=== PATIENT | female | born 1940 | race Caucasian/White ===

== ENCOUNTER 2017-04-11 23:55 | Inpatient (IN) | payer MEDICARE ==
[~2017-04-11] VITALS: Ht 167.6 cm; Wt 78.5 kg
[~2017-04-11 23:55] MED LIST: ADVAIR 250/5028 PUFF IN; ALBUTEROL-200 PUFFS/ IH; CIPRO 500MG TA500 MG PO; HYDROCODONE-APA1 TA2 PO; LEVAQUIN 750 M750 MG PO; LISINOPRIL 5MG T5 MG PO; MEDROL 4MG. DOSE4 MG PO; MELOXICAM7.5 MG PO; MIRALAX(PO17 GM/1 PA PO; NEURONTIN 300M300 MG PO; NICOTINE PATCH;14 MG TD; NICOTINE PATCH;21 MG TD; NORCO 325 MG-51 TAB PO; OXYCODONE30 MG PO; PREDNICOT10 MG PO; PREDNISONE 20MG20 MG PO; SYMBICORT1 AER IH; VALIUM10 MG PO; XANAX 1MG TABLET1 MG PO; ZITHROMAX Z PA250 MG PO; ZOFRAN ODT4 MG PO
[2017-04-11 23:58] VITALS: BP 129/75
--- NOTE | 2017-04-12 00:10 | Emergency Room Report ---
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 Y Clinical Suspician of Infection? Y Mental Status: 1 - Regular (Normal Baseline) Sepsis Risk:Severe Sepsis Risk Have you (or family members/close friends) recently traveled outside the [place]? N If Yes, where/when: Have you had exposure to infectious disease within the past month? N TB? Other? 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 Mirtazapine 15 MG PO BID TRAZODONE HCL (Trazodone HCl) 50 MG PO QHS Pantoprazole Sodium (Pantoprazole 40MG) 40 MG PO DAILY Atorvastatin Calcium (Atorvastatin) 40 MG PO DAILY History Medical History General CAD? No Angina: No [place]: No Hypertension? Yes Hyperlipidemia? No CHF? No COPD? Yes Asthma? Yes Anemia? No Hernia? No Thyroid Problems? No Hypothyroidism? No CVA? No Seizures? No Diabetes? No End Stage Renal Disease? No UTI? No Stones? No GB Disease: No Nephritic Syndrome? No Asplenia? No Hepatitis? No Sickle Cell Disease? No Arthritis? Yes Cataracts? No Glaucoma? No MRSA? No TB? No Cancer? Yes Site: COLON More? No Immunization Hx DT/Tetanus 1-4 YRS Flu Refused Pneumonia 08/21/14 Surgical Hx Previous Surgery?Y COLONOSCOPY COLON SURGERY Appendix Tubal Ligation CANCER REMOVED FROM NECK COLON SURGERY LEFT TIB SURGERY Family History Family Hx Diabetes No CAD Yes Hypertension Yes Hyperlipidemia Yes Cancer Yes TB No Social History Smoking Hx Smoker: Current Every Day Smoker Tobacco: Yes Type Cigarettes Packs/day < 1 Pack Alcohol Alcohol: No Drugs none Review of Systems All Other Systems Reviewed and Negative Constitutional see HPI, fever, weakness Eyes denies drainage ENT denies: ear discharge, epistaxis, throat pain. Respiratory cough, shortness of breath, denies wheezing Cardiovascular denies chest pain, denies palpitations, denies syncope Gastrointestinal see HPI, denies abdominal pain, denies diarrhea, nausea, denies vomiting Genitourinary denies: dysuria, frequency, hesitancy, hematuria. Musculoskeletal denies back pain, denies joint pain, denies joint swelling, denies neck pain Skin denies rash Psychiatric/Neurological denies headache, denies seizure Physical Exam Vital Signs Vital Signs Date Time Temp Pulse Resp B/P Pulse O2 O2 Flow FiO2 Ox Delivery Rate 04/12 0056 101 24 126/70 91 2 04/12 0027 99 24 126/70 91 2 04/11 2358 101.4 113 24 129/75 86 - WBC >12,000 or <4,000 or 10% bands? 2 or more SIRS Criteria Met? B/P:126/70 MAP:93 Creatinine >2.0? UA output<0.5ml/kg/hr for 2 hrs? Platelet count >100,000? Lactate >2.0mmol/1? INR >1.2 or PTT > than 60 sec? Evidence of Organ Dysfunction? Provider documented clinical suspician of infection? Y Sepsis Criteria Count: 1 Sepsis Risk: General Appearance no apparent distress Eye Exam - bilateral eye PERRL, bilateral eye EOMI Ear, Nose, Throat normal ENT inspection, dry mm Neck supple Respiratory Status No: respiratory distress. Lung Sounds bilateral: decreased breath sounds, rhonchi, wheezing. 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 No Results/Orders Laboratory Tests 04/12/17 0121: Urine Color YELLOW, Urine Appearance CLEAR, Urine pH 5.5, Ur Specific [place] 1.020, Urine Protein 1+ H, Urine Ketones TRACE H, Urine Blood 1+ H, Urine Nitrate NEGATIVE, Urine Bilirubin NEGATIVE, Urine Urobilinogen 2.0, Ur Leukocyte Esterase 2+ H, Urine RBC OCC, Urine WBC 5-10, Urine Bacteria OCC, Urine Glucose NEGATIVE 04/12/17 0030: Lactic Acid 1.9 04/12/17 0000: Sodium 136, Potassium 4.1, Chloride 99, Carbon Dioxide 28, BUN 18, Creatinine 1.6 H, Estimated Creat Clear 32 L, Estimated GFR (MDRD) 31 L, Glucose 197 H, Calcium 8.7, Total Bilirubin 0.7, AST 16, ALT 17, Alkaline Phosphatase 156 H, Creatine Kinase 230 H, CK-MB (CK-2) Rel Index 1.0, CK and CKMB Interp 2.3, Troponin I < 0.02, Total Protein 7.8, Albumin 3.2 L, Globulin 4.6 H, Albumin/ Globulin Ratio 0.7 L, WBC 13.5 H, RBC 4.51, Hgb 13.7, Hct 40.8, MCV 90.3, RDW 13.7, Plt Count 168, MPV 9.6, Gran % 84.2 H, Gran # 11.3 H, Lymphocytes % 10.9 , Monocytes % 4.5, Eosinophils % 0.2, Basophils % 0.3, Lymphocytes # 1.5, Monocytes # 0.6, Eosinophils # 0.0, Basophils # 0.0, PUBS MCHC 33.6, MCH 30.3 Current Medication Orders Sig/Adin Start time Last Medication Dose Route Stop Time Status Admin Acetaminophen 650 MG ONCE ONE 04/12 30 DC 04/12 PO 04/12 31 0025 Acetaminophen 0 .STK-MED ONE 04/12 21 DC PO Sodium Chloride 10 ML PRN PRN 04/12 001 AC IV 04/13 001 Orders Procedure Date/time Status CULTURE, URINE 04/12 0121 Active ELECTROCARDIOGRAM REQUEST 04/12 10 Active CHEST-PORTABLE 04/12 10 Active IV SALINE LOCK 04/12 10 Active CULTURE, BLOOD 04/12 10 Active URINALYSIS/COMPLETE 04/12 10 Complete LACTIC ACID 04/12 10 Complete COMPLETE METABOLIC PANEL 04/12 10 Complete CBC WITH AUTO DIFF 08/30 0010 Complete CARDIAC ENZYMES 04/12 0010 Complete 12 LEAD EKG-CHIDI (INITIAL) 04/12 UNK Active CM/EKG CM/global coordinator Rhythm Sinus Tachycardia EKG non-spec. ST/Twave chgs XRAY/CT/US XRAY/CT/US XRAY chest XR interpretation by reviewed by me Xray Results abnormal (bibasilar changes ) Departure Departure Time of Disposition 0131 Disposition Still a Patient Clinical Impression Primary Impression: UTI (urinary tract infection) Qualifiers: Urinary tract infection type: acute cystitis Hematuria presence: without hematuria Qualified Code: N30.00 - Acute cystitis without hematuria Secondary Impressions: Acute bronchitis Qualifiers: Bronchitis organism: unspecified organism Qualified Code: J20.9 - Acute bronchitis, unspecified Renal insufficiency Condition STABLE ED Critical Care Critical Care No at 0202
--- NOTE | 2017-04-12 00:10 | Emergency Room Report ---
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 Y Clinical Suspician of Infection? Y Mental Status: 1 - Regular (Normal Baseline) Sepsis Risk:Severe Sepsis Risk Have you (or family members/close friends) recently traveled outside the [place]? N If Yes, where/when: Have you had exposure to infectious disease within the past month? N TB? Other? 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 Mirtazapine 15 MG PO BID TRAZODONE HCL (Trazodone HCl) 50 MG PO QHS Pantoprazole Sodium (Pantoprazole 40MG) 40 MG PO DAILY Atorvastatin Calcium (Atorvastatin) 40 MG PO DAILY History Medical History General CAD? No Angina: No [place]: No Hypertension? Yes Hyperlipidemia? No CHF? No COPD? Yes Asthma? Yes Anemia? No Hernia? No Thyroid Problems? No Hypothyroidism? No CVA? No Seizures? No Diabetes? No End Stage Renal Disease? No UTI? No Stones? No GB Disease: No Nephritic Syndrome? No Asplenia? No Hepatitis? No Sickle Cell Disease? No Arthritis? Yes Cataracts? No Glaucoma? No MRSA? No TB? No Cancer? Yes Site: COLON More? No Immunization Hx DT/Tetanus 1-4 YRS Flu Refused Pneumonia 08/21/14 Surgical Hx Previous Surgery?Y COLONOSCOPY COLON SURGERY Appendix Tubal Ligation CANCER REMOVED FROM NECK COLON SURGERY LEFT TIB SURGERY Family History Family Hx Diabetes No CAD Yes Hypertension Yes Hyperlipidemia Yes Cancer Yes TB No Social History Smoking Hx Smoker: Current Every Day Smoker Tobacco: Yes Type Cigarettes Packs/day < 1 Pack Alcohol Alcohol: No Drugs none Review of Systems All Other Systems Reviewed and Negative Constitutional see HPI, fever, weakness Eyes denies drainage ENT denies: ear discharge, epistaxis, throat pain. Respiratory cough, shortness of breath, denies wheezing Cardiovascular denies chest pain, denies palpitations, denies syncope Gastrointestinal see HPI, denies abdominal pain, denies diarrhea, nausea, denies vomiting Genitourinary denies: dysuria, frequency, hesitancy, hematuria. Musculoskeletal denies back pain, denies joint pain, denies joint swelling, denies neck pain Skin denies rash Psychiatric/Neurological denies headache, denies seizure Physical Exam Vital Signs Vital Signs Date Time Temp Pulse Resp B/P Pulse O2 O2 Flow FiO2 Ox Delivery Rate 04/12 0056 101 24 126/70 91 2 04/12 0027 99 24 126/70 91 2 04/11 2358 101.4 113 24 129/75 86 - WBC >12,000 or <4,000 or 10% bands? 2 or more SIRS Criteria Met? B/P:126/70 MAP:93 Creatinine >2.0? UA output<0.5ml/kg/hr for 2 hrs? Platelet count >100,000? Lactate >2.0mmol/1? INR >1.2 or PTT > than 60 sec? Evidence of Organ Dysfunction? Provider documented clinical suspician of infection? Y Sepsis Criteria Count: 1 Sepsis Risk: General Appearance no apparent distress Eye Exam - bilateral eye PERRL, bilateral eye EOMI Ear, Nose, Throat normal ENT inspection, dry mm Neck supple Respiratory Status No: respiratory distress. Lung Sounds bilateral: decreased breath sounds, rhonchi, wheezing. 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 No Results/Orders Laboratory Tests 04/12/17 0121: Urine Color YELLOW, Urine Appearance CLEAR, Urine pH 5.5, Ur Specific [place] 1.020, Urine Protein 1+ H, Urine Ketones TRACE H, Urine Blood 1+ H, Urine Nitrate NEGATIVE, Urine Bilirubin NEGATIVE, Urine Urobilinogen 2.0, Ur Leukocyte Esterase 2+ H, Urine RBC OCC, Urine WBC 5-10, Urine Bacteria OCC, Urine Glucose NEGATIVE 04/12/17 0030: Lactic Acid 1.9 04/12/17 0000: Sodium 136, Potassium 4.1, Chloride 99, Carbon Dioxide 28, BUN 18, Creatinine 1.6 H, Estimated Creat Clear 32 L, Estimated GFR (MDRD) 31 L, Glucose 197 H, Calcium 8.7, Total Bilirubin 0.7, AST 16, ALT 17, Alkaline Phosphatase 156 H, Creatine Kinase 230 H, CK-MB (CK-2) Rel Index 1.0, CK and CKMB Interp 2.3, Troponin I < 0.02, Total Protein 7.8, Albumin 3.2 L, Globulin 4.6 H, Albumin/ Globulin Ratio 0.7 L, WBC 13.5 H, RBC 4.51, Hgb 13.7, Hct 40.8, MCV 90.3, RDW 13.7, Plt Count 168, MPV 9.6, Gran % 84.2 H, Gran # 11.3 H, Lymphocytes % 10.9 , Monocytes % 4.5, Eosinophils % 0.2, Basophils % 0.3, Lymphocytes # 1.5, Monocytes # 0.6, Eosinophils # 0.0, Basophils # 0.0, PUBS MCHC 33.6, MCH 30.3 Current Medication Orders Sig/Adin Start time Last Medication Dose Route Stop Time Status Admin Acetaminophen 650 MG ONCE ONE 04/12 30 DC 04/12 PO 04/12 31 0025 Acetaminophen 0 .STK-MED ONE 04/12 21 DC PO Sodium Chloride 10 ML PRN PRN 04/12 001 AC IV 04/13 001 Orders Procedure Date/time Status CULTURE, URINE 04/12 0121 Active ELECTROCARDIOGRAM REQUEST 04/12 10 Active CHEST-PORTABLE 04/12 10 Active IV SALINE LOCK 04/12 10 Active CULTURE, BLOOD 04/12 10 Active URINALYSIS/COMPLETE 04/12 10 Complete LACTIC ACID 04/12 10 Complete COMPLETE METABOLIC PANEL 04/12 10 Complete CBC WITH AUTO DIFF 08/30 0010 Complete CARDIAC ENZYMES 04/12 0010 Complete 12 LEAD EKG-CHIDI (INITIAL) 04/12 UNK Active 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 ST/Twave chgs XRAY/CT/US XRAY/CT/US XRAY chest XR interpretation by reviewed by me Xray Results abnormal (bibasilar changes ) Departure Departure Time of Disposition 0131 Disposition Still a Patient Clinical Impression Primary Impression: UTI (urinary tract infection) Qualifiers: Urinary tract infection type: acute cystitis Hematuria presence: without hematuria Qualified Code: N30.00 - Acute cystitis without hematuria Secondary Impressions: Acute bronchitis Qualifiers: Bronchitis organism: unspecified organism Qualified Code: J20.9 - Acute bronchitis, unspecified Renal insufficiency Condition STABLE ED Critical Care Critical Care No at 0202
[2017-04-12 00:15] LABS: HEMOGLOBIN 13.7 g/dL (12.2-16.2); LYMPH # 1.5 K/mm3 (0.7-4.5); LYMPH % 10.9 % (10-50.0)
[2017-04-12 00:39] LABS: BUN 18 mg/dL (7-18)
[2017-04-12] MEDS ORDERED: METFORMIN500 MG PO (00:39)
[2017-04-12] MEDS ORDERED: MIRTAZAPINE15 M1 PO (00:39)
[2017-04-12 00:40] LABS: GFR (ESTIMATED) 31 ML/MIN (59-)
[2017-04-12] MEDS ORDERED: TRAZODONE 50MG50 MG PO (00:40)
[2017-04-12] MEDS ORDERED: PANTOPRAZOLE SO40 MG PO (00:40)
[2017-04-12] MEDS ORDERED: LIPITOR40 MG PO (00:40)
[2017-04-12 01:29] LABS: URINE BILIRUBIN - DIPSTICK NEGATIVE (NEG); URINE BLOOD 1+ (NEG)
[2017-04-12 05:39] VITALS: BP 101/58
--- NOTE | 2017-04-12 06:01 | RADIOLOGY REPORT PS360 ---
CHEST-PORTABLE HISTORY: Shortness of breath sob ORDERING PHYSICIAN: Blanca Davies MD PATIENT AGE: 76 years COMPARISON: 12/21/2014 FINDINGS: Unremarkable cardiovascular structures. There are low lung volumes with vascular crowding and chronic changes in the lower lobes with superimposed increased density in the right lower lung zone suggesting pneumonia and/or volume loss. No acute bony anomalies. IMPRESSION: Chronic changes with suspected superimposed pneumonia right lower lobe
[2017-04-12 06:52] LABS: HEMOGLOBIN 13.4 g/dL (12.2-16.2); LYMPH # 2.5 K/mm3 (0.7-4.5); LYMPH % 19.8 % (10-50.0)
[2017-04-12 08:00] VITALS: BP 124/60
[2017-04-12] MEDS ORDERED: LISINOPRIL20 MG PO (09:04)
--- NOTE | 2017-04-12 09:08 | PHARMACY CLINIC NOTE ---
Patient Demographics Patient Demographics Admission date: 04/12/17 Date: 04/12/17 Time: 0907 Allergies Coded Allergies: No Known Allergies (04/12/17) HEIGHT- FT: 5 IN: 6.00 K.472 VTE General Information Labs: Laboratory Tests 04/12 04/12 0635 0000 Hematology Hgb (12.2 - 16.2 g/dL) 13.4 13.7 Hct (37.0 - 47.0 %) 41.0 40.8 Plt Count (142 - 424 K/mm3) 154 168 Disclaimer The following section includes nursing documentation that has been pulled in for pharmacy review. Patient's VTE score: 5 Patient's VTE Risk: LOW RISK Clinical trial participant? No VTE prophylaxis [id number] [id number] VTE prophylaxis ordered? Yes Type of prophylaxis/treatment: ANTHONY at 0908
[2017-04-12 10:08] VITALS: BP 124/60
--- NOTE | 2017-04-12 12:49 | HISTORY AND PHYSICAL REPORT ---
Demographics: Admit date: 04/11/17 Chief complaint: sob PRIMARY DIAGNOSIS: UTI; BRONCHITIS Allergies: Coded Allergies: No Known Allergies (04/12/17) History of present illness: History of present illness: this wf who uses o2 at home prn had dec loc and hypoxia at home with inc cough and sob and had dec level of ambulation and dec po intake with low sat and assoc fever - ems was called and found pt with dec sat and ill appearing and presented to ed- she was found to have low sat with clinical and xray changes consistent with cap - she also has uti and was admitted for ivf and abx with pulmonary toilet Past medical history: Family HX Family Hx Insignificant Yes Immunization HX DT/Tetanus 1-4 YRS Flu Refused Pneumonia 08/21/14 TB Test in last year No General CAD? No Angina: No [place]: No Hypertension? Yes Hyperlipidemia? No CHF? No COPD? Yes Asthma? Yes Anemia? No Hernia? No Thyroid Problems? No Hypothyroidism? No CVA? No Seizures? No Diabetes? No UTI? No Stones? No GB Disease: No Nephritic Syndrome? No Asplenia? No Hepatitis? No Sickle Cell Disease? No Arthritis? Yes Cataracts? No Glaucoma? No MRSA? No TB? No Cancer? Yes Site: COLON More? No Past Surgical HX Previous Surgery?Y COLONOSCOPY COLON SURGERY Appendix Tubal Ligation CANCER REMOVED FROM NECK COLON SURGERY LEFT TIB SURGERY Current home meds: Reported Medications Lisinopril 20 MG PO DAILY #30 Metformin HCL (Metformin) 500 MG PO BID. Mirtazapine 15 MG PO BID TRAZODONE HCL (Trazodone HCl) 50 MG PO QHS Pantoprazole Sodium (Pantoprazole 40MG) 40 MG PO DAILY Atorvastatin Calcium (Atorvastatin) 40 MG PO DAILY Social Hx: Smoking HX Tobacco Yes Type Cigarettes Packs/day < 1 PACK Alcohol Alcohol: No Hx of Drug Use Drug Use? No Patien't marital status is Patient's support system is good Review of systems: Constitutional see HPI, fever, weakness. Eyes No: drainage. Ears, Nose, Mouth, Throat No ear discharge, No epistaxis, No throat pain Respiratory see HPI, cough, shortness of breath, wheezing. Cardiovascular No chest pain, No palpitations, No syncope Gastrointestinal/Abdominal see HPI, No abdominal pain, No diarrhea, nausea, poor appetite, poor fluid intake, No vomiting Genitourinary frequency. No: dysuria, hesitancy, hematuria. Musculoskeletal No: back pain, joint pain, joint swelling, neck pain. Skin No: rash. Neurological Yes: see HPI, weakness. No: headache, numbness, tingling. Psychiatric No: no symptoms reported. Exam: Lab data for last 24 hours: Laboratory Tests 04/12/17 0900: Creatine Kinase 525 H, CK-MB (CK-2) Rel Index 1.5, CK and CKMB Interp 7.7 H, Troponin I < 0.02 04/12/17 0635: Creatine Kinase 570 H, CK-MB (CK-2) Rel Index 1.5, CK and CKMB Interp 8.8 *H, Troponin I < 0.02 04/12/17 0635: Sodium 138, Potassium 3.5, Chloride 100, Carbon Dioxide 29, BUN 22 H, Creatinine 1.8 H, Estimated Creat Clear 33 L, Estimated GFR (MDRD) 27 L, Glucose 192 H, Calcium 8.8, WBC 12.8 H, RBC 4.47, Hgb 13.4, Hct 41.0, MCV 91.6 , RDW 13.7, Plt Count 154, MPV 10.2, Gran % 74.8, Gran # 9.6 H, Lymphocytes % 19.8, Monocytes % 4.4, Eosinophils % 0.8, Basophils % 0.2, Lymphocytes # 2.5, Monocytes # 0.6, Eosinophils # 0.1, Basophils # 0.0, PUBS MCHC 32.7, MCH 29.9 04/12/17 0121: Urine Color YELLOW, Urine Appearance CLEAR, Urine pH 5.5, Ur Specific [place] 1.020, Urine Protein 1+ H, Urine Ketones TRACE H, Urine Blood 1+ H, Urine Nitrate NEGATIVE, Urine Bilirubin NEGATIVE, Urine Urobilinogen 2.0, Ur Leukocyte Esterase 2+ H, Urine RBC OCC, Urine WBC 5-10, Urine Bacteria OCC, Urine Glucose NEGATIVE 04/12/17 0030: Lactic Acid 1.9 04/12/17 0000: Sodium 136, Potassium 4.1, Chloride 99, Carbon Dioxide 28, BUN 18, Creatinine 1.6 H, Estimated Creat Clear 32 L, Estimated GFR (MDRD) 31 L, Glucose 197 H, Calcium 8.7, Total Bilirubin 0.7, AST 16, ALT 17, Alkaline Phosphatase 156 H, Creatine Kinase 230 H, CK-MB (CK-2) Rel Index 1.0, CK and CKMB Interp 2.3, Troponin I < 0.02, Total Protein 7.8, Albumin 3.2 L, Globulin 4.6 H, Albumin/ Globulin Ratio 0.7 L, WBC 13.5 H, RBC 4.51, Hgb 13.7, Hct 40.8, MCV 90.3, RDW 13.7, Plt Count 168, MPV 9.6, Gran % 84.2 H, Gran # 11.3 H, Lymphocytes % 10.9 , Monocytes % 4.5, Eosinophils % 0.2, Basophils % 0.3, Lymphocytes # 1.5, Monocytes # 0.6, Eosinophils # 0.0, Basophils # 0.0, PUBS MCHC 33.6, MCH 30.3 Microbiology 04/12 216 SPUTUM: Sputum Culture - RES 04/12 216 SPUTUM: Gram Stain - RES 04/12 0121 URINE CATH: Urine Culture - RECD 04/12 30 BLOOD: Anaerobic Blood Culture - RECD 04/12 003 BLOOD: Aerobic Blood Culture - RECD 04/12 003 BLOOD: Anaerobic Blood Culture - RECD 04/12 003 BLOOD: Aerobic Blood Culture - RECD Admission vital signs: 1ST Vital Signs Result Date Time Pulse Ox 86 04/11 2358 B/P 129/75 04/11 2358 Temp 101.4 04/11 2358 Pulse 113 04/11 2358 Resp 24 04/11 2358 O2 Flow Rate 2 04/12 0027 O2 Delivery OXYGEN 04/12 0539 Exam General appearance: alert, awake Eyes: conjunctiva clear, PERRLA ENT: dry mucous membranes Neck: no JVD Cardiovascular: regular rate & rhythm, murmur Respiratory: basilar rales, diminished breath sounds, rhonchi ABD: soft Genitourinary: no hematuria Extremities: moves all, no calf tenderness Musculoskeletal: equal muscle strength Skin: dry 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 COPD (chronic obstructive pulmonary disease) 2. CAP (community acquired pneumonia) 3. Renal insufficiency 4. UTI (urinary tract infection) Plan: will give abx and check sputum culture and will give ivf and abx - at 1248
[2017-04-12 16:27] VITALS: BP 122/71
[2017-04-12 19:18] VITALS: BP 133/80
[2017-04-12 19:44] VITALS: BP 133/80
[2017-04-13 05:11] VITALS: BP 124/75
[2017-04-13 08:21] LABS: LYMPH # 1.4 K/mm3 (0.7-4.5); LYMPH % 17.2 % (10-50.0)
[2017-04-13 08:29] LABS: HEMOGLOBIN 11.6 g/dL (12.2-16.2)
[2017-04-13 08:30] VITALS: BP 136/67
--- NOTE | 2017-04-13 09:05 | ACUTE CARE PROGRESS NOTE (QUA) ---
Progress Notes Subjective Date 04/13/17 Time 0903 Patient/family reports: feeling better Nursing reports: alert Objective Findings Laboratory Tests 04/13/17 0630: Sodium 140, Potassium 4.0, Chloride 105, Carbon Dioxide 28, BUN 13, Creatinine 1.1 H, Estimated Creat Clear 54, Estimated GFR (MDRD) 48 L, Glucose 113 H, Calcium 8.5, WBC 8.2, RBC 3.83 L, Hgb 11.6 L, Hct 35.1 L, MCV 91.5, RDW 13.9, Plt Count 140 L, MPV 9.6, Gran % 75.3, Gran # 6.2, Lymphocytes % 17.2, Monocytes % 5.1, Eosinophils % 2.1, Basophils % 0.2, Lymphocytes # 1.4, Monocytes # 0.4, Eosinophils # 0.2, Basophils # 0.0, PUBS MCHC 33.1, MCH 30.3 Vital Signs Date Time Temp Pulse Resp B/P Pulse O2 O2 Flow FiO2 Ox Delivery Rate 04/13 0830 98.3 99 20 136/67 93 OXYGEN 04/13 0754 98.3 95 18 124/75 95 2 04/13 0643 2 04/13 0629 2 04/13 0629 95 2 04/13 0511 98.3 95 18 124/75 97 OXYGEN 04/13 0452 2 04/13 0300 2 04/13 0100 2 04/12 2250 2 04/12 2214 84 ROOM AIR 04/12 2100 2 04/12 1944 98.0 88 18 133/80 94 2 04/12 1918 98.0 88 18 133/80 94 OXYGEN 04/12 1905 2 04/12 1710 2 04/12 1627 98.2 85 18 122/71 92 OXYGEN 04/12 1528 2 04/12 1300 2 04/12 1110 2 04/12 1008 98.0 90 18 124/60 92 2 04/12 0915 2 Current Medications Methylprednisolone Sodium Succinate 60 MG Q8 IV (UNV) Methylprednisolone Sodium Succinate 125 MG ONCE ONE IV (UNV) Atorvastatin Calcium 40 MG QHS PO Ceftriaxone Sodium 1 GM 2100 IV Sodium Chloride 50 ML Pantoprazole Sodium 40 MG QHS PO Trazodone HCl 50 MG QHS PO Insulin Human [rDNA origin] 0 .STK-MED ONE SC (DC) Insulin Human [rDNA origin] 0 .STK-MED ONE SC (DC) Azithromycin 500 MG DAILY IV Sodium Chloride 250 ML Lisinopril 20 MG DAILY PO Polyethylene Glycol 17 GM DAILY PO Diagnostic Test (Pha) 1 EACH W/MEALS&HS FS Insulin Human [rDNA origin] SEE ADMIN CRITERIA FOR LOW INTENSITY SS W/MEALS&HS SC Albuterol 2.5 MG Q6H6 INH Acetaminophen 650 MG Q4HP PRN PO Nicotine 21 MG DAILYP PRN TD Ondansetron HCl 4 MG Q6HP PRN IV Sodium Chloride 1,000 ML .[id number] IV Sodium Chloride 10 ML PRN PRN IV Last VS-Temp:98.3 B/P:136/67 Pulse:99 Resp:20 SaO2:93 OXYGEN Last weight lbs:173 oz:0 K.472 Method:Floor Scales Exam General appearance: normal appearance, awake, no acute distress Eyes: normal exam ENT: normal exam Neck: normal inspection Cardiovascular: normal exam, regular rate & rhythm Respiratory: wheezing ABD: normal exam, soft Genitourinary: normal voiding & quantity Extremities: normal exam, moves all, warm Musculoskeletal: normal exam Skin: normal exam, intact, warm Neuro: normal exam, alert, intact, oriented Reviewed: allergies, medications, vital signs, lab results, radiology report Assessment/Plan Problem List 1. COPD (chronic obstructive pulmonary disease) 2. CAP (community acquired pneumonia) 3. Renal insufficiency 4. UTI (urinary tract infection) Qualifiers: Urinary tract infection type: acute cystitis Hematuria presence: without hematuria Qualified Code: N30.00 - Acute cystitis without hematuria Patient condition Stable Plan: continue current care This inpt stay is expected to cross 2 MNs from start of care Yes Comments: Rounded with Dr. Davies, patient's to be out of bed, added steroids for wheezing , will check on later today if out of bed doesn't cause too much shortness of breath or discomfort we'll discharge home later at 0905
[2017-04-13 12:00] VITALS: BP 127/67
[2017-04-13 16:26] VITALS: BP 135/65
[2017-04-13] MEDS ORDERED: PREDNISONE 20MG20 MG PO (17:06)
[2017-04-13] MEDS ORDERED: ZITHROMAX Z PA250 MG PO (17:06)
--- NOTE | 2017-04-13 17:10 | DISCHARGE SUMMARY STANDARD ---
Demographics Admit date: 04/11/17 Discharge date: 04/13/17 History of present illness History of present illness this wf who uses o2 at home prn had dec loc and hypoxia at home with inc cough and sob and had dec level of ambulation and dec po intake with low sat and assoc fever - ems was called and found pt with dec sat and ill appearing and presented to ed- she was found to have low sat with clinical and xray changes consistent with cap - she also has uti and was admitted for ivf and abx with pulmonary toilet Hospital Course Hospital Course: pneumonia/uti- Iv antibotics, steriods, montior of vs. Pt up walking and states doing well will dc home and she is to follow up with pcp. Discharge diagnoses Problem List 1. COPD (chronic obstructive pulmonary disease) 2. CAP (community acquired pneumonia) 3. Renal insufficiency 4. UTI (urinary tract infection) Medications Medications: Discharge meds are as noted. Comment: rounded with gisela Follow up Follow up in office in: 7 DAYS with: Gisela RODRIGUEZ,Adriel Molnia at [phone]
[2017-04-13 18:41] VITALS: BP 135/65
== END 2017-04-13 18:50 | disposition home or self-care (01) | DRG 194 ==
LOC: ER 23:55 → 2ND 04-12 01:43
PROVIDERS: Emergency Medicine
DX: J18.9 Pneumonia, unspecified organism (principal); N39.0 Urinary tract infection, site not specified; Z99.81 Dependence on supplemental oxygen; J44.9 Chronic obstructive pulmonary disease, unspecified; I10 Essential (primary) hypertension
CPT/HCPCS: J0456

== ENCOUNTER 2017-05-23 09:02 | Day surgery (SDC) | payer MEDICARE ==
[2017-05-23 11:37] VITALS: BP 171/101
== END 2017-05-23 11:35 | disposition home or self-care (01) ==
LOC: SDC 09:02
PROC: 08RK3JZ Replacement of Left Lens with Synthetic Substitute, Percutaneous Approach (ICD-10-PCS; principal; 2017-05-23)
DX: H26.9 Unspecified cataract (principal); E11.9 Type 2 diabetes mellitus without complications